=== PATIENT | male | born 1975 | race Two or more races ===

== ENCOUNTER 2018-04-13 12:16 | Outpatient (CLI) | payer OTHER | END 2018-04-13 13:00 | disposition home or self-care (01) | LOC: NUCLEAR 12:16 | DX: M79.662 Pain in left lower leg (principal) ==

== ENCOUNTER 2019-07-18 12:36 | Emergency (ER) | payer OTHER ==
[~2019-07-18] VITALS: Ht 177.8 cm; Wt 99.8 kg
== END 2019-07-18 17:47 | disposition home or self-care (01) ==
LOC: ER 12:36
DX: K58.8 Other irritable bowel syndrome (principal)

== ENCOUNTER 2021-05-28 03:25 | Emergency (ER) | payer OTHER ==
[~2021-05-28] VITALS: Ht 177.8 cm; Wt 104.3 kg
[2021-05-28] MEDS ORDERED: FORTAMET500 MG (03:34)
== END 2021-05-28 12:55 | disposition home or self-care (01) ==
LOC: ER 03:25
DX: K52.89 Other specified noninfective gastroenteritis and colitis (principal); K57.30 Diverticulosis of large intestine without perforation or abscess without bleeding; K76.0 Fatty (change of) liver, not elsewhere classified; R10.31 Right lower quadrant pain; R10.32 Left lower quadrant pain

== ENCOUNTER 2024-04-29 18:55 | Inpatient (IN) | payer OTHER ==
[~2024-04-29] VITALS: Ht 177.8 cm; Wt 101.2 kg
[~2024-04-29 18:55] MED LIST: FORTAMET500 MG
[2024-04-29] MEDS ORDERED: FAMOTIDINE/PF 20 MG in 0.9 % SODIUM CHLORIDE 8 ML IV PUSH STA (20:55)
[2024-04-29] MEDS ORDERED: METRONIDAZOLE/SODIUM CHLORIDE 500 MG/100 ML PIGGYBACK IV ONE ×2 (20:58→21:00)
[2024-04-29] MEDS ORDERED: ONDANSETRON HCL 2 MG/ML VIAL ONE (20:58)
[2024-04-29] MEDS ORDERED: HYOSCYAMINE SULFATE 0.125 MG TAB.SUBL ONE (20:58)
[2024-04-29] MEDS ORDERED: FAMOTIDINE/PF 20 MG/2 ML VIAL ONE (20:59)
[2024-04-29] MEDS ORDERED: ONDANSETRON HCL 2 MG/ML VIAL IV ONE (21:00)
[2024-04-29] MEDS ORDERED: HYOSCYAMINE SULFATE 0.125 MG TAB.SUBL SL ONE (21:00)
[2024-04-29] MEDS ORDERED: 0.9 % SODIUM CHLORIDE 1,000 ML IV SCH ×2 (21:00→22:45)
[2024-04-29 21:19] LABS: HEMATOCRIT 46.6 % (39.0-48.0); HEMOGLOBIN 15.7 g/dL (13-16.00); MEAN CELL VOLUME 87.2 fL (80.0-100.00); MEAN CORPUSCULAR HEMOGLOBIN 29.4 pg (27.00-32.0); MEAN CORPUSCULAR HGB CONC 33.7 g/dl (32.0-36.0); PLATELET COUNT 258 K/uL (150-450); RED BLOOD COUNT 5.35 M/uL (4.00-6.00); RED CELL DISTRIBUTION WIDTH 13.1 % (11.5-14.5)
[2024-04-29 21:39] LABS: ALBUMIN 3.5 gm/dL (3.4-5.0); BILIRUBIN TOTAL 0.34 mg/dL (0.3-1.2); CREATININE SERUM 1.26 mg/dL (0.70-1.30); GFR 61.61; GLOBULINA 5.1 G/DL (2.4-3.5); POTASSIUM 3.36 mEq/L (3.5-5.1); TOTAL PROTEIN 8.6 gm/dL (6.4-8.2)
[2024-04-29] MEDS ORDERED: METRONIDAZOLE/SODIUM CHLORIDE 100 ML IV SCH (22:38)
[2024-04-29] MEDS ORDERED: ACETAMINOPHEN 325 MG TABLET PO PRN (22:45)
[2024-04-29] MEDS ORDERED: ONDANSETRON HCL 4 MG in 0.9 % SODIUM CHLORIDE 50 ML IV PRN (22:45)
[2024-04-29] MEDS ORDERED: MORPHINE SULFATE 2 MG/ML CARTRIDGE IV PRN (22:45)
[2024-04-29] MEDS ORDERED: POTASSIUM CHLORIDE/NACL 0.9% 1,000 ML IV ONE (22:45)
[2024-04-29] MEDS ORDERED: INSULIN LISPRO 1,000 UNIT/10 ML UNITS SUBCUTANEO PRN (23:00)
[2024-04-29] MEDS ORDERED: DEXTROSE 50 % IN WATER 0.5 G/ML DISP.SYRIN IV PRN (23:00)
[2024-04-30 00:31] VITALS: BP 117/80; O2SAT 96
[2024-04-30 00:36] LABS: INR 1.05; PARTIAL THROMBOPLASTIN TIME 35.8 SECONDS (22.0-34.0); PROTHROMBIN TIME 11.4 SECONDS (9.0-11.5)
[2024-04-30 01:11] VITALS: BP 136/85; O2SAT 97
[2024-04-30 01:49] LABS: PH,URINE 5.5 (5.0-8.0); URINE APPEARANCE Clear; URINE BILIRRUBIN Negative (NEGATIVE); URINE BLOOD Negative; URINE COLOR Yellow; URINE GLUCOSE Negative (NEGATIVE); URINE KETONE Trace (NEGATIVE); URINE LEUKOCYTE Trace; URINE NITRATE Negative; URINE PROTEIN Trace (NEGATIVE)
[2024-04-30 01:52] LABS: URINE BACTERIA 13.8 uL (0.0-1933); URINE EPITHELIAL CELLS 7.5 uL (0.0-38.8); URINE RBC 10.8 uL (0.0-20.8); URINE WBC 5.8 uL (0.0-23.2)
[2024-04-30 08:00] VITALS: BP 122/76; O2SAT 98
[2024-04-30 08:52] LABS: CREATININE SERUM 0.82 mg/dL (0.70-1.30); GFR 101.15; POTASSIUM 3.68 mEq/L (3.5-5.1)
[2024-04-30] MEDS ORDERED: ACETAMINOPHEN 500 MG GEL..CAP PO PRN (09:00)
[2024-04-30 16:17] VITALS: BP 133/76; O2SAT 98
[2024-04-30 23:34] VITALS: BP 124/75; O2SAT 98
[2024-05-01 08:00] VITALS: BP 126/73; O2SAT 100
[2024-05-01 16:18] VITALS: BP 120/79; O2SAT 98
[2024-05-02 00:44] VITALS: BP 110/73; O2SAT 100
[2024-05-02 06:53] LABS: HEMATOCRIT 38.2 % (39.0-48.0); HEMOGLOBIN 13.3 g/dL (13-16.00); MEAN CELL VOLUME 85.6 fL (80.0-100.00); MEAN CORPUSCULAR HEMOGLOBIN 29.8 pg (27.00-32.0); MEAN CORPUSCULAR HGB CONC 34.8 g/dl (32.0-36.0); PLATELET COUNT 224 K/uL (150-450); RED BLOOD COUNT 4.46 M/uL (4.00-6.00); RED CELL DISTRIBUTION WIDTH 13.1 % (11.5-14.5)
[2024-05-02 07:25] LABS: ALBUMIN 2.7 gm/dL (3.4-5.0); BILIRUBIN TOTAL 0.31 mg/dL (0.3-1.2); CALCIUM 8.3 mg/dL (8.5-10.1); CREATININE SERUM 0.71 mg/dL (0.70-1.30); GFR 119.44; GLOBULINA 3.2 G/DL (2.4-3.5); POTASSIUM 3.64 mEq/L (3.5-5.1); TOTAL PROTEIN 5.9 gm/dL (6.4-8.2)
[2024-05-02 08:49] VITALS: BP 114/72; O2SAT 97
[2024-05-02 18:57] VITALS: BP 132/84; O2SAT 80
== END 2024-05-02 20:07 | disposition home or self-care (01) | DRG 392 ==
LOC: ER 18:56 → MEDJ 22:41 → SURG 22:41
PROVIDERS: General Practice; ADMIT Specialist/Technologist, Other Nephrology; ATTEND Specialist/Technologist, Other Nephrology
PROC: BW21ZZZ Computerized Tomography (CT Scan) of Abdomen and Pelvis (ICD-10-PCS; principal; 2024-04-29)
DX: K57.30 Diverticulosis of large intestine without perforation or abscess without bleeding (principal); K56.609 Unspecified intestinal obstruction, unspecified as to partial versus complete obstruction; K90.49 Malabsorption due to intolerance, not elsewhere classified; E11.9 Type 2 diabetes mellitus without complications; Z79.4 Long term (current) use of insulin

== ENCOUNTER 2024-06-09 10:16 | Emergency (ER) | payer OTHER ==
[~2024-06-09] VITALS: Ht 175.3 cm; Wt 102.1 kg
[2024-06-09 10:41] VITALS: BP 145/96; O2SAT 100
[2024-06-09] MEDS ORDERED: ONDANSETRON HCL 2 MG/ML VIAL IV STA (10:52)
[2024-06-09] MEDS ORDERED: MEPERIDINE HCL/PF 50 MG/ML VIAL IM ONE (11:00)
[2024-06-09] MEDS ORDERED: 0.9 % SODIUM CHLORIDE 1,000 ML IV SCH (11:00)
[2024-06-09 11:40] LABS: HEMATOCRIT 46.4 % (39.0-48.0); HEMOGLOBIN 15.8 g/dL (13-16.00); MEAN CELL VOLUME 87.2 fL (80.0-100.00); MEAN CORPUSCULAR HEMOGLOBIN 29.7 pg (27.00-32.0); PLATELET COUNT 253 K/uL (150-450); RED BLOOD COUNT 5.33 M/uL (4.00-6.00); RED CELL DISTRIBUTION WIDTH 14.1 % (11.5-14.5)
[2024-06-09 12:16] LABS: CALCIUM 9.9 mg/dL (8.5-10.1); CREATININE SERUM 1.01 mg/dL (0.70-1.30); GFR 79.53; POTASSIUM 4.28 mEq/L (3.5-5.1)
[2024-06-09 12:36] LABS: PH,URINE 5.5 (5.0-8.0); URINE APPEARANCE Clear; URINE BILIRRUBIN Negative (NEGATIVE); URINE BLOOD Trace; URINE COLOR Yellow; URINE GLUCOSE Negative (NEGATIVE); URINE KETONE Negative (NEGATIVE); URINE LEUKOCYTE Negative; URINE NITRATE Negative; URINE PROTEIN Negative (NEGATIVE); URINE UROBILINOGEN 0.2 E.U./dl
[2024-06-09 12:40] LABS: URINE BACTERIA 7.5 uL (0.0-1933); URINE RBC 12.8 uL (0.0-20.8)
[2024-06-09 13:07] LABS: URINE WBC 1.3 uL (0.0-23.2)
[2024-06-09] MEDS ORDERED: CIPROFLOXACIN IN 5 % DEXTROSE 400 MG/200 ML PIGGYBAG IV ONE (14:00)
[2024-06-09] MEDS ORDERED: METRONIDAZOLE/SODIUM CHLORIDE 500 MG/100 ML PIGGYBACK IV ONE (14:00)
== END 2024-06-09 15:34 | disposition home or self-care (01) ==
LOC: ER 10:18
PROVIDERS: Emergency Medicine
DX: K57.92 Diverticulitis of intestine, part unspecified, without perforation or abscess without bleeding (principal); R10.9 Unspecified abdominal pain; E11.9 Type 2 diabetes mellitus without complications; Z79.84 Long term (current) use of oral hypoglycemic drugs

== ENCOUNTER 2024-12-27 08:52 | Outpatient (CLI) | payer OTHER | END 2024-12-27 08:53 | disposition home or self-care (01) | LOC: NUCLEAR 08:52 | DX: I73.9 Peripheral vascular disease, unspecified (principal) ==

== ENCOUNTER 2025-01-02 10:08 | Outpatient (CLI) | payer OTHER | END 2025-01-02 10:12 | disposition home or self-care (01) | LOC: TOM 10:08 | DX: R10.2 Pelvic and perineal pain (principal); K76.0 Fatty (change of) liver, not elsewhere classified; Z12.11 Encounter for screening for malignant neoplasm of colon; Z13.21 Encounter for screening for nutritional disorder; Z13.6 Encounter for screening for cardiovascular disorders; Z13.220 Encounter for screening for lipoid disorders; I10 Essential (primary) hypertension; Z13.29 Encounter for screening for other suspected endocrine disorder; Z12.5 Encounter for screening for malignant neoplasm of prostate; N39.0 Urinary tract infection, site not specified; Z13.0 Encounter for screening for diseases of the blood and blood-forming organs and certain disorders involving the immune mechanism; K40.90 Unilateral inguinal hernia, without obstruction or gangrene, not specified as recurrent ==